=== PATIENT | male | born 1975 | race Caucasian/White ===

== ENCOUNTER 2020-11-23 05:37 | Day surgery (SDC) | payer BC ==
[~2020-11-23] VITALS: Ht 175.3 cm; Wt 84.5 kg
--- NOTE | ~2020-11-23 | OR ---
[facility] [address] [place], [place] [address] Draft DATE OF OPERATION: SURGEON: Xavi Vasquez MD PREOPERATIVE DIAGNOSIS: Left pharyngeal tumor. POSTOPERATIVE DIAGNOSIS: Left pharyngeal tumor. PROCEDURE: Direct laryngoscopy, biopsy of left pharyngeal tumor. ANESTHESIA: General orotracheal. IMAGING SCIENCE PROFESSOR: Pierce. PREOPERATIVE HISTORY: Mr. Marques is a 45-year-old male with a left pharyngeal tumor, very suspicious for neoplasia. CAT scan had shown a mass in the left tonsil area and cervical lymph nodes. He is taken to the operating for the above-mentioned procedures. OPERATIVE PROCEDURE AND FINDINGS: After informed consent, the patient was taken to the operating room, placed in the supine position where general orotracheal anesthesia was induced. The patient and procedure were verified. The patient was repositioned. Digital palpation of the tumor showed a very large indurated mass in the left pharynx, this extended up to the level of the soft palate and down inferiorly beyond the surgeon's finger at least 3 or 4 cm in greatest dimension superior-inferior, very hard indurated mass. The anterior commissure laryngoscope was then used to visualize the hypopharynx and larynx. The mass was visualized on the way down and extended about to the midline pushing the uvula to the right side slightly. The hypopharynx and larynx were all within normal limits. The inferior extent of the mass was at about the level of the arytenoid on the left side. No laryngeal or hypopharyngeal abnormalities. The scope was removed. The McIvor mouth gag was then placed into suspension, the mass appeared to be mostly submucosal, there was some granular tissue superiorly near the retromolar trigone, which was biopsied with the Norm. Several other biopsies more inferiorly submucosal into the depth of the mass, all specimen sent to pathology in formalin. PATIENT NAME: ISABEL MARQUES OPERATIVE REPORT DATE OF : 71 REPORT #: [id number] PHYSICIAN: XAVI VASQUEZ MD PCP: EVA SIMMS MD REPORT IS CONFIDENTIAL AND NOT TO BE RELEASED WITHOUT AUTHORIZATION [facility] [address] [place], [place] [address] Draft Bleeding was prominent, but stopped after a 5-minute observation. Pharynx was suctioned clear of blood secretions and mouth gag was removed. The patient was awakened, extubated, transported to the recovery room in good condition. No complications. BLOOD LOSS: About 50 mL. SPECIMEN: Left pharyngeal mass to pathology. Xavi Vasquez MD /MODL /[id number] Copies: ~ PATIENT NAME: ISABEL MARQUES OPERATIVE REPORT DATE OF : 71 REPORT #: [id number] PHYSICIAN: XAVI VASQUEZ MD PCP: EVA SIMMS MD REPORT IS CONFIDENTIAL AND NOT TO BE RELEASED WITHOUT AUTHORIZATION
[~2020-11-23 05:37] MED LIST: TRAZODONE HCL100 MG PO; ULTRAM50 MG PO
--- NOTE | 2020-11-23 05:54 | NUR ---
[facility] RAPID COVID TEST DONE PER ORDER. COVID TEST COLLECTED FROM BOTH NARES W/O ISSUE. PT TOLERATED WELL.
[2020-11-23] MEDS ORDERED: NAPROXEN250 MG PO (06:16)
[2020-11-23] MEDS ORDERED: IBUPROFEN200 M1 PO (06:16)
[2020-11-23] MEDS ORDERED: ACETAMINOPHEN500 M1 PO (06:17)
--- NOTE | 2020-11-23 09:46 | NUR ---
11/23/20 0946 Nayeli,Tasha 0966 PT ARRIVED TO PACU WITH ORAL AIRWAY IN PLACE, RESP EVEN AND UNLABORED ON 10L VIA MASK. VSS.
--- NOTE | 2020-11-23 10:28 | NUR ---
PATIENT BACK IN DAY SURGERY ROOM FROM PACU. PATIENT DROWSY. C/O PAIN 03/14. DENIES NEED FOR PAIN MEDICATION AT THIS TIME. PATIENT GIVEN ICE WATER AND JELLO. IV SITE WNL. SCDs ON. AT BEDSIDE. CALL LIGHT WITHIN REACH.
--- NOTE | 2020-11-23 11:00 | NUR ---
KELSEY SHARIF INTO SEE PT. PT STATES 9/10 PAIN IN LEFT EAR/THROAT. NEW ORDERS GIVEN VERBALLY TO THIS RN AND INPUT INTO [employer]. 1110: PT UP TO BR WITH RN ASSIST. STEADY GAIT, DENIES NAUSEA OR DIZZINESS. PT ABLE TO VOID QS WITH NO PROBLEMS. PT BACK TO DS RM 5 TO GET DRESSED.
--- NOTE | 2020-11-23 11:20 | NUR ---
1120: DC INSRUCTIONS PRESENTED TO PT AND SIGNIFICANT OTHER. PT HAS NO FURTHER QUESTIONS. PT DC FROM DS RM 5 VIA WC TO FAMILY VEHICLE WAITING AT MAIN ENTRANCE OF HOSPITAL TO HOME.
--- NOTE | 2020-11-23 13:48 | NUR ---
PT ALERT, ORIENTED AND SUPPORTED BY HIS AISSATOU. PT SEEMS INFORMED, ALL QUESTIONS ASKED ASWERED. PT REQUESTED PRAYER, WILL FOLLOW NEEDED
--- NOTE | 2020-11-25 16:15 | PATH ---
[facility] [address] [place], [place] [address] Signed SPECIMEN(S): A LEFT PHARYNGEAL TUMOR SPECIMEN SOURCE: A. LEFT PHARYNGEAL TUMOR CLINICAL HISTORY: Direct laryngoscopy biopsy of pharyngeal lesion. Pre: Pharyngeal lesion. Post: Same. FINAL PATHOLOGIC DIAGNOSIS: Left pharyngeal tumor, excision: - Invasive poorly differentiated squamous cell carcinoma. - A p16 immunostain is uniformly positive in tumor cells. COMMENT: The diagnosis is given to Dr. Jameson by Dr. Simpson on 11/25/2020 at 18:44. As part of [facility]' Quality Improvement Program, this case was reviewed by another member of our pathology staff. JVR:YANCI:cml:C1NR MICROSCOPIC EXAMINATION: Histologic sections of all submitted blocks are examined by light microscopy. These findings, together with the gross examination, support the pathologic diagnosis. Immunostains are performed with appropriate controls on block A1 and show the following: Cytokeratin AE1/AE3: Positive in tumor cells. p63: Positive in tumor nuclei. p16: Uniform expression within tumor cells. JVR:cml GROSS DESCRIPTION: The specimen, labeled "MS, left pharyngeal tumor," is received in formalin and consists of several irregular shaped, pink-red, focally congested soft tissue fragments that aggregate measure 1.4 x 1.5 x 0.4 cm. Specimen is entirely submitted in cassette (A1). JS (under the direct supervision of a pathologist) The Gross Description was prepared using a voice recognition system. The report was reviewed for accuracy; however, sound-alike word errors, addition and/or deletions may occur. If there is any PATIENT NAME: ISABEL LOVE PATHOLOGY DATE OF : 71 REPORT #: [id number] PHYSICIAN: XI LINDER PCP: EVA SIMMS MD REPORT IS CONFIDENTIAL AND NOT TO BE RELEASED WITHOUT AUTHORIZATION [facility] [address] [place], [place] [address] Signed question about this report, please contact Client Services. ADDITIONAL NOTES: Immunohistochemical and/or in situ hybridization studies were performed on this case with the appropriate positive controls that react as expected. This test was developed and its performance characteristics determined by [facility]. It has not been cleared or approved by the U.S. Food and Drug Administration. The FDA has determined that such clearance or approval is not necessary. This test is used for clinical purposes. It should not be regarded as investigational or for research. [facility] is certified under the Clinical Laboratory Improvement Amendments of 1988 (CLIA) as qualified to perform high complexity clinical laboratory testing. PERFORMING LABORATORY: The technical component was performed by [facility], [address] [place] [address] (Roller Picker: Rosa Curran MD; CLIA# [id number]). Professional interpretation was performed by [facility], [facility], [address] [place] [address]. Diagnostician: Efra Simpson MD Pathologist Electronically Signed 11/25/2020 Copies: ~ PATIENT NAME: ISABEL LOVE PATHOLOGY DATE OF : 71 REPORT #: [id number] PHYSICIAN: XI LINDER PCP: EVA SIMMS MD REPORT IS CONFIDENTIAL AND NOT TO BE RELEASED WITHOUT AUTHORIZATION
== END 2020-11-23 11:20 | disposition home or self-care (01) ==
LOC: DS 05:37 → OPS 05:37 → DS 06:45 → OPS 09:00
PROVIDERS: ATTEND Otolaryngology
PROC: 0CBM8ZX Excision of Pharynx, Via Natural or Artificial Opening Endoscopic, Diagnostic (ICD-10-PCS; principal; 2020-11-23 09:00)
DX: C11.1 Malignant neoplasm of posterior wall of nasopharynx (principal); I10 Essential (primary) hypertension; Z87.891 Personal history of nicotine dependence; Z20.822 Contact with and (suspected) exposure to COVID-19
CPT/HCPCS: 00320; C9803; J1100; J1885; J2001; J2250; J2405; J2704; J3010; J7121; U0003

== ENCOUNTER 2020-12-14 05:41 | Day surgery (SDC) | payer BC ==
[~2020-12-14] VITALS: Ht 175.3 cm; Wt 84.5 kg
[~2020-12-14 05:41] MED LIST changes: +ACETAMINOPHEN500 M1 PO; +IBUPROFEN200 M1 PO; +NAPROXEN250 MG PO
--- NOTE | 2020-12-14 06:19 | NUR ---
[facility] RAPID COVID TEST DONE PER ORDER. COVID TEST COLLECTED FROM BOTH NARES W/O ISSUE. PT TOLERATED WELL.
[2020-12-14] MEDS ORDERED: PRILOSEC OTC20 MG PO (10:10)
--- NOTE | 2020-12-14 10:59 | NUR ---
12/14/20 1059 Gwen Walsh 7066 PT ARRIVED IN PACU WIDE AWAKE WITH NO C/O'S. PEG TUBE INTACT TO ABD WITH CANDACE AND RADHA OVERSITE. 1000 DR AT BEDSIDE TALKING WITH PT. 1013 C/O ABD PAIN 8. FENTANYL 50MCG GIVEN IVP. TALKING TO STAFF. 1021 NO CHANGE IN PAIN LEVEL. FENTANYL 50MCG GIVE IVP. EDUCATION GIVEN ON HOW TO FLUSH PEG TUBE AND 60CC CATHETER TIP SYRINGE GIVEN TO PT. 1030 NO C/O'S. GETTING DRESSED. 1042 DC INSTRUCTIONS GIVEN TO PT/ AT CAR. ALL QUESTIONS ANSWERED. IRRIGATION KIT WITH PISTON SYRINGE GIVEN TO PT. LEFT VIA W/C.
--- NOTE | 2020-12-14 12:37 | NUR ---
PT ALERT, ORIENTED AND SUPPORTED BY HIS AISSATOU. PT IS ANXIOUS FOR TODAY AND IS LOOKING AT WHAT HE HAS COMING UP FOR TREATMENT. ENCOURAGED PT TO NOT LOOK DOWN THE ROAD-DEAL WITH TODAY. ONE STEP IN ROAD TO RECOVERY. HAD PRAYER WITH PT AND AISSATOU. PT THANKED ME, WILL FOLLOW NEEDED
--- NOTE | 2020-12-16 14:48 | PATH ---
[facility] [address] [place], [place] [address] Signed SPECIMEN(S): A ANTRUM/PYLORUS SPECIMEN SOURCE: A. ANTRUM/PYLORUS CLINICAL HISTORY: Left tonsillar carcinoma. Dx: Gastritis, tonsillary Ca. MICROSCOPIC DESCRIPTION: Histologic sections of all submitted blocks are examined by light microscopy. These findings, together with the gross examination, support the pathologic diagnosis. FINAL PATHOLOGIC DIAGNOSIS: Stomach, antrum/pylorus, biopsy: - Antral and oxyntic mucosa with no histopathologic abnormality. - Negative for Helicobacter organisms on HE stain. - Negative for dysplasia or malignancy. NAL:cml:C2NR GROSS DESCRIPTION: The specimen, labeled "MS, one," and designated on the requisition "antrum biopsy," is received in formalin and consists of one jin soft tissue fragment(s) that measure 0.6 cm in greatest dimension. The specimen is entirely submitted in cassette (A1). AI(under the direct supervision of a pathologist) The Gross Description was prepared using a voice recognition system. The report was reviewed for accuracy; however, sound-alike word errors, addition and/or deletions may occur. If there is any question about this report, please contact Client Services. PERFORMING LABORATORY: The technical component was performed by [facility], [address] [place] [address] (Structural Steel Painter: Rosa Curran MD; CLIA# [id number]). [facility], [address] [address] (CLIA# [id number]). Diagnostician: Emilia Otero MD Pathologist Electronically Signed 12/16/2020 PATIENT NAME: ISABEL LOVE PATHOLOGY DATE OF : 71 REPORT #: [id number] PHYSICIAN: INCYTE PATHOLOGY PCP: EVA SIMMS MD REPORT IS CONFIDENTIAL AND NOT TO BE RELEASED WITHOUT AUTHORIZATION [address] [address] Signed Copies: ~ PATIENT NAME: ISABEL LOVE PATHOLOGY DATE OF : 71 REPORT #: [id number] PHYSICIAN: INCYTE PATHOLOGY PCP: EVA SIMMS MD REPORT IS CONFIDENTIAL AND NOT TO BE RELEASED WITHOUT AUTHORIZATION
--- NOTE | 2020-12-16 17:33 | OR ---
[facility] [address] [place], [place] [address] Signed DATE OF OPERATION: 12/14/2020 SURGEON: Amy Henry MD PREOPERATIVE DIAGNOSIS: Left tonsillar carcinoma. POSTOPERATIVE DIAGNOSES: 1. Left tonsillar carcinoma. 2. Antral gastritis. PROCEDURE: 1. Esophagogastroduodenoscopy with biopsy of antrum. 2. Placement of PEG tube (percutaneous endoscopic gastrostomy) Bard type kit. ANESTHESIA: Monitored with anesthesia care, Jesus Otto CRNA and local 1% lidocaine. 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 He has been discovered to have a left tonsillar carcinoma, for which concurrent chemoradiation therapy is anticipated. His radiation therapist, Dr. Coreas has recommended he have a placement of PEG tube anticipating G-tube feedings once his therapy is initiated as he likely will have significant dysphagia, pain, and so forth. A Port-A-Cath has not been required according to his oncologist, Dr. Castro. He is admitted at this time to undergo upper endoscopy and endoscopic percutaneous endoscopic gastrostomy tube, possible open procedure depending on findings. The risks of bleeding, infection, dislodgement of the tube, and other unforeseen complications was reviewed with him in detail. He understands and wished to proceed. FINDINGS: Gastric anatomy was normal overall. He did have antral gastritis, for which biopsies were taken for both PAUL and pathologic testing. The duodenum was normal. There was no sign of gastric outlet obstruction. He had no significant hiatal hernia. The esophagus was normal. Rugal folds were normal. The PEG tube was placed at the junction between the antrum and the body of the stomach. Good transillumination was noted through the abdominal wall and impression of the abdominal wall to allow for placement of a percutaneous gastrostomy tube. Electronically Signed By: AMY HENRY MD 12/16/20 2494 PATIENT NAME: ISABEL LOVE OPERATIVE REPORT DATE OF : 71 REPORT #: [id number] PHYSICIAN: AMY HENRY MD PCP: EVA SIMMS MD REPORT IS CONFIDENTIAL AND NOT TO BE RELEASED WITHOUT AUTHORIZATION [facility] [address] [place], [place] [address] Signed DESCRIPTION OF PROCEDURE: The patient was brought to the operating room, placed in the supine position. Preoperative antibiotic Ancef was given. Sequential compression device stockings were used. In the supine position, he was given intravenous sedation with full cardiopulmonary monitoring. A bite block was placed. An Olympus video upper endoscope was passed in the hypopharynx. The vocal cords appeared normal. The scope was advanced to the esophagus without problem, passed into the stomach. Rugal folds appeared normal. The antrum showed chronic inflammatory changes and some acute inflammatory changes as well. There was no specific ulceration. The pylorus was normal. Scope was passed through into the duodenum. The duodenum was normal. The scope was withdrawn and retroflexed view undertaken showing no large hiatal hernia or any contraindication to the PEG tube placement. Reorientation of the scope was undertaken allowing for biopsy of the antrum for both PAUL and pathologic testing. Transillumination was undertaken showing a bright spot beneath the left costal margin toward the midline anticipated as appropriate site for PEG tube placement. on the abdominal wall translated into the stomach itself with unlikely chance of an intervening organ between the abdominal wall and the stomach. The site was prepared with Betadine solution. A 1% lidocaine injected. Transverse incision was made with an #11 blade. Using the HaveMyShift kit, obturator needle passage to the abdominal wall was undertaken. It was initially hard for the needle to actually penetrate the mucosa, but with additional air insufflation it did occur and the flexible wire was passed down the needle after removing the obturator of the needle. The wire was then grasped with a snare and withdrawn from the mouth. The PEG tube catheter was then passed over the wire through the mouth and carefully drawn through the esophagus in the abdominal wall as per usual after lubricating the device fully. Once emerging from the incision, it was withdrawn carefully more and snugged up to about 6 cm marlena on the tube. The upper endoscope was reintroduced and verified to be in good position. The tube was snugged up just a bit more. The appropriate flange was applied. The connection to the tube was applied as well. Irrigation with catheter-tip syringe showed good function of the tube. There appeared to be no complication. No untoward bleeding or other issues. Insufflation of the stomach showed it to hold air well implying good apposition of the stomach to the abdominal wall. The air was withdrawn and the scope removed and the patient was taken to the recovery room in good condition. BLOOD LOSS: Minimal. COMPLICATIONS: None. Electronically Signed By: AMY HENRY MD 12/16/20 1733 PATIENT NAME: ISABEL LOVE OPERATIVE REPORT DATE OF : 71 REPORT #: [id number] PHYSICIAN: AMY HENRY MD PCP: EVA SIMMS MD REPORT IS CONFIDENTIAL AND NOT TO BE RELEASED WITHOUT AUTHORIZATION [address] [address] Signed MD ROSEY Aquino/MODL /[id number] cc: MD Dale Forrest MD, PH.D. Copies: EVA SIMMS DMD, JUNO ~ Electronically Signed By: AMY HENRY MD 12/16/20 1733 PATIENT NAME: ISABEL LOVE OPERATIVE REPORT DATE OF : 71 REPORT #: [id number] PHYSICIAN: AMY HENRY MD PCP: EVA SIMMS MD REPORT IS CONFIDENTIAL AND NOT TO BE RELEASED WITHOUT AUTHORIZATION
== END 2020-12-14 10:42 | disposition home or self-care (01) ==
LOC: OPS 05:41 → DS 05:41 → OPS 10:42 → DS 11:30
PROVIDERS: ATTEND Surgery
PROC: 0DH63UZ Insertion of Feeding Device into Stomach, Percutaneous Approach (ICD-10-PCS; 2020-12-14)
PROC: 0DB98ZZ Excision of Duodenum, Via Natural or Artificial Opening Endoscopic (ICD-10-PCS; principal; 2020-12-14 06:45)
DX: C14.0 Malignant neoplasm of pharynx, unspecified (principal); C09.9 Malignant neoplasm of tonsil, unspecified; K29.50 Unspecified chronic gastritis without bleeding; Z87.891 Personal history of nicotine dependence
CPT/HCPCS: 00700; C9803; J0690; J1100; J1644; J2250; J2405; J2704; J3010; J7121; U0003

== ENCOUNTER 2022-05-23 12:37 | Emergency (ER) | payer BC ==
[~2022-05-23] VITALS: Ht 175.3 cm; Wt 70.6 kg
[~2022-05-23 12:37] MED LIST changes: +HYDROCODON-ACE1 EA10 PO; +LIDOCAINE HCL100 ML MT; +ONDANSETRON ODT8 MG PO; +PENTOXIFYLLINE400 MG PO; +PRILOSEC OTC20 MG PO
--- OUTSIDE RECORDS SUMMARY | 2022-05-23 12:38 | XMS ---
PreManage Notification: ISABEL LOVE Security Digital Experience Manager Events No recent Security Events currently on file CRITERIA MET - PDMP CARE PROVIDERS MENDEZ [facility] Current PHONE: [phone] Hernandez has no Care Guidelines for this patient. EJacquie VISIT COUNT (12 MO.) 1 AVELINO Lopez TOTAL 1 NOTE: Visits indicate total known visits. ED/UCC VISIT TRACKING (12 MO.) 05/23/2022 12:[address] [facility] TYPE: Emergency COMPLAINT: - URINE PROBLEM INPATIENT VISIT TRACKING (12 MO.) No inpatient visits to display in this time frame [email or web address]
[2022-05-23] MEDS ORDERED: AZO BLADDER CO300 MG PO (13:32)
[2022-05-23] MEDS ORDERED: MACROBID 100 M100 MG PO (16:21)
== END 2022-05-23 17:55 | disposition home or self-care (01) ==
LOC: ED 12:37
DX: N39.0 Urinary tract infection, site not specified (principal); E87.6 Hypokalemia; K76.0 Fatty (change of) liver, not elsewhere classified; I10 Essential (primary) hypertension; Z87.891 Personal history of nicotine dependence; Z79.899 Other long term (current) drug therapy
CPT/HCPCS: 36415; 74177; 80053; 81001; 83690; 85025; 87070; 87205; J1885; J2405; J7030; Q9967

== ENCOUNTER 2022-10-26 14:09 | Inpatient (IN) | payer BC, OTHER ==
[~2022-10-26] VITALS: Ht 175.3 cm; Wt 62.4 kg
[~2022-10-26 14:09] MED LIST changes: +AZO BLADDER CO300 MG PO; +MACROBID 100 M100 MG PO
--- OUTSIDE RECORDS SUMMARY | 2022-10-26 14:13 | XMS ---
PreManage Notification: ISABEL LOVE Security Machinery Mover Events No recent Security Events currently on file CRITERIA MET - PDMP CARE PROVIDERS MENDEZ [facility] Current PHONE: [phone] Hernandez has no Care Guidelines for this patient. EJacquie VISIT COUNT (12 MO.) 2 AVELINO Lopez TOTAL 2 NOTE: Visits indicate total known visits. ED/UCC VISIT TRACKING (12 MO.) 10/26/2022 14:10 [facility] [place] TYPE: Emergency COMPLAINT: - POST SURGICAL OPEN WOUND 05/23/2022 12:37 [facility] [place] TYPE: Emergency COMPLAINT: - URINE PROBLEM DIAGNOSES: - Hypokalemia - Other halfway (current) drug therapy - Fatty (change of) liver, not elsewhere classified - Urinary tract infection, site not specified - Frequency of micturition - Personal history of nicotine dependence - Essential (primary) hypertension INPATIENT VISIT TRACKING (12 MO.) 10/04/2022 05:21 [facility] TYPE: Ear, Nose, Throat DIAGNOSES: 45106. Radiological procedure and radiotherapy as the cause of abnormal reaction of the patient, or of later complication, without mention of misadventure at the time of the procedure 175[address]. Other secondary osteonecrosis, unspecified bone 15189. Malignant neoplasm of head, face and neck 65509. OSTEONECROSIS OF MANDIBLE (HCC) 50598. Malignant neoplasm of head, face and neck 64713. Other secondary osteonecrosis, unspecified bone 82116. Osteomyelitis, unspecified 20649. Radiological procedure and radiotherapy as the cause of abnormal reaction of the patient, or of later complication, without mention of misadventure at the time of the procedure [email or web address]
[2022-10-26] MEDS ORDERED: MOXIFLOXACIN H400 MG PO (14:39)
[2022-10-26] MEDS ORDERED: CHLORHEXIDINE473 ML MM (14:39)
[2022-10-26] MEDS ORDERED: DULOXETINE HCL60 MG PO (14:40)
[2022-10-26] MEDS ORDERED: LEVOTHYROXINE50 MCG PO (14:40)
--- NOTE | 2022-10-26 19:45 | NUR ---
pt ADMITED TO MEDSURG FLOOR FROM ED, ED RN KOLE AT BEDSIDE AND PROVIDED BEDSDIE REPORT. pt A/OX4, ORIENTED TO ROOM. CALL LIGHT IN REACH. IV FLUIDS INFUSING DIRECTED, IV SITE WNL. pt HAS HOME FEEDING TUBE (DOBHOFF) IN PLACE AND SECURED. MOTHER AND FAMILY BRIEFLY IN pt ROOM. DRESSING TO LEFT SIDE OF NECK NOTED, DRESSING IS WET TO DRY. GENERALIZED EDEMA AND REDDNOESS NOTED TO NECK AREA, pt DENIES DIFFICULTY SWALLOWING-ASKING FOR ICE CHIPS PER HIS HOME ROUTINE-THIS RN TO DISCUSS HOME DIET WITH MD THERE ARE NO CURRENT DIET ORDERS IN PLACE.
--- NOTE | 2022-10-26 20:30 | NUR ---
pt REPORTS THAT BECAUSE OF HIS HOME FEEDING TUBE (DOBHOFF) pt DOESN'T TAKE ORAL INTAKE VIA MOUTH W/ THE EXCEPTION OF ICE CHIPS. pt REPORTS HE IS ON A 1500 CALORIE/DAY PLAN AND GETS HIS MEALS AND MEDS VIS HIS FEEDING TUBE. DR LARA MADE AWARE, THERE IS NO CURRENT DIET ORDERS IN PLACE. TELEPHONE ORDER READ BACK FOR A CHEST X-RAY TO CONFIRM DOBHOFF TIP PLACEMENT AND OKAY TO FOLLOW pt's HOME FEEDING ROUTINE. PER DR LARA, OKAY TO USE FEEDING TUBE ONCE PLACEMENT IS CONFIRMED. TELEPHONE ORDER ALSO READ BACK FOR A DIET CONSULT TO ASSIST pt NUTRITION AND MIMIC BEST HOME ROUTINE VIA FEEDING TUBE. pt UPDATED ALONG WITH PRIMARY RN MARYURI. MOTORCYCLE TESTER ALSO MADE AWARE AND UPDATED.
--- NOTE | 2022-10-26 21:53 | NUR ---
INTO ROUND ON PATIENT. IV PAIN MEDICAITON EFFECTIVE, PATIENT RATES PAIN 0/10 ON PAIN SCALE. PATIENT REQUESTED GAUZE, PLACED ALLEVYN GENTLE BORDER TO REINFORCE DRESSING IN PLACE. NOTED YELLOWISH DRAIANGE. CALL LIGHT WITHIN REACH. NO OTHER NEEDS AT THIS TIME.
--- NOTE | 2022-10-26 22:37 | EKG ---
[facility] [facility] [address] [place] [address] Signed Sinus tachycardia Otherwise normal ECG When compared with ECG of 13-DEC-2020 13:40, Incomplete right bundle branch block is no longer present Confirmed by Kaela Lara MD () on 10/26/2022 10:37:46 PM Electronically Signed By: KAELA LARA MD 10/26/222236 PATIENT NAME: ISABEL LOVE Electrocardiogram DATE OF : 71 PHYSICIAN: KAELA LARA MD REPORT #: [id number] REPORT IS CONFIDENTIAL AND NOT TO BE RELEASED WITHOUT AUTHORIZATION
--- NOTE | 2022-10-27 03:43 | NUR ---
PATIENT CALLED FOR WARM BLANKETS AND PAIN MEDICATION. TURNED UP TEMPERATURE IN ROOM, AND PROVIDED WARM BLANKETS. ADMINISTERED PAIN MEDICATION PER JAN. PATIENT REPORTS PAIN 8/10 ON PAIN SCALE MOSTLY RADIATING IN FACE AREA. NOTED INCREASED SWELLING TO LEFT SIDE OF FACE, EYE APPEARS PUFFY. PATIENT WAS SLEEPING IN POSITION, MAY BE DEPENDANT SWELLING. AIRWAY CLEAR, PATIENT ABLE TO CONVERSE EASILY. OXYGEN SATUATION 100% ON ROOM AIR. PATIENT BREATHING EVEN AND REGULAR. PATIENT DUE TO VOID. PROVIDED WITH URINAL, STATES " I CAN PEE NOW".
--- NOTE | 2022-10-27 07:52 | NUR ---
Patient in bed resting, arousable to verbal stimuli. RADHA Christianson admin dilaudid and changed neck dressing during bedside shift report. Left neck dressing saturated with thick yellow drainage. New packing placed per provider order. Patient tolerated well. IV antibiotics infusing, IV site patent. No current needs, personal supplies and call light within reach.
--- NOTE | 2022-10-27 08:25 | NUR ---
pt refused am care this morning.
--- NOTE | 2022-10-27 09:30 | NUR ---
DILAUDID 0.5MG IV ADMIN FOR REPORTS OF 5/10 LEFT NECK PAIN.
--- NOTE | 2022-10-27 09:39 | NUR ---
PATIENT IN BED THIS AM. VITALS ARE COMPLETED. PATIENT NPO, AND HAS YET TO VOID. THIS LABOR RELATIONS MANAGER WILL RETURN WHEN THE PT DOES. CALL LIGHT WITHIN REACH.
--- NOTE | 2022-10-27 10:00 | NUR ---
Spoke with Jordan. He lives in a house in [place]. He is recently and his mom is staying with him to assist with the dressing changes on his neck and leg. See H&P for surgery note. Pt has a feeding tube in his L nares and he takes 6 cartons of Nutra for food. He would like an implanted feeding tube as the nasal is painful for him. Pt states he has a suction machine and a boot at home for DME. His feedings are syringe bolus. Pt returned home around the of the month and declined HH. He would now like for wound care. I called [facility] and they requested a chart today, as they will be closed over . They will put pt on the schedule for dressing changes on Sunday of next week. Pt is attempting to schedule an appt with his ENT at [facility] for next week.
--- NOTE | 2022-10-27 10:38 | NUR ---
ADMIN 0.5MG IV DILAUDID FOR REPORTS OF 8/10 LEFT NECK PAIN.
[2022-10-27] MEDS ORDERED: METRONIDAZOLE500 MG PO (10:46)
[2022-10-27] MEDS ORDERED: OXYCODONE HCL5 MG PO (10:47)
--- NOTE | 2022-10-27 11:00 | NUR ---
Spoke with pts mom, Manuela. She states she is staying with Jordan and assisting him. She states this is very hard as he is not compliant and blames her for his wound infection. Dr Anderson was also present and answered questions. Per Manuela, ENT is attempting to schedule pt for an appt next .
--- NOTE | 2022-10-27 11:05 | NUR ---
PT LAYING ON R SIDE IN BED. RESPONDED TO MY VOICE, FAMILIAR WITH THIS PT. HE REPLIED HIS PAIN IS 8, JUST MOVED. FEEDING TUBE IN PLACE-PT APPEARS TO WANT TO REST AT MOMENT. GAVE G.POST, HAD PRAYER AND GAVE ENOURAGEMENT.
--- NOTE | 2022-10-27 11:54 | NUR ---
Dilaudid 1mg IV admin for reports of 6/10 left neck pain.
--- NOTE | 2022-10-27 12:00 | NUR ---
Jevity 1.5 480ml feed infusing at this time per order, pt tolerating well. Patient denies abdominal discomfort. Left neck dressing reinforced as it does not stick to his skin well. Patient has no current needs, personal supplies and call light within reach.
--- NOTE | 2022-10-27 12:17 | CONS ---
[facility] [address], [place] [address] Signed DATE OF CONSULTATION: 10/27/2022 CHIEF COMPLAINT: Left neck wound. 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 He initially received radiation therapy. The radiation had affected the mandible and it broke down and he had to have it reconstructed with the left fibula. He just came home from our [facility] on the of this month. He has a nasogastric feeding tube with a bridle in place in his proximal stomach. He had been at home recovering. His tracheostomy has been removed about seven days ago. The wound on his neck broke down and he decided to come to the emergency room for evaluation. Incidentally, the chest x-ray showed increased markings in his right upper lobe concerning for pneumonia. Therefore, he was given vancomycin and Zosyn. The ENT department was contacted at [facility]. They felt his wound could be handled with wet to moist gauze packing. I was asked to see him as a general surgeon on-call. Overall, he has done well last night and this morning. PAST MEDICAL HISTORY: Hypertension and HPV related head and throat cancer. PAST SURGICAL HISTORY: Includes tonsillectomy and reconstruction of his jaw about three weeks ago at [facility]. He has had a gastrostomy tube in the past. He had a recent tracheostomy tube that has been removed and he had the mandible reconstructed. SOCIAL HISTORY: He drinks occasionally. He does use some marijuana. He is to [place] at [phone][address] vEa Simms is his primary care provider. He prefers the [facility] pharmacy. 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 He is a full code. FAMILY HISTORY: None. REVIEW OF SYSTEMS: He had 10 systems reviewed and there was nothing new to add. ALLERGIES: None. MEDICATIONS: Electronically Signed By: ARLINE COLEY MD 10/27/22 1217 PATIENT NAME: JORDAN LOVE CONSULTATION DATE OF : 71 REPORT #: [id number] PHYSICIAN: ARLINE COLEY MD PCP: EVA SIMMS MD REPORT IS CONFIDENTIAL AND NOT TO BE RELEASED WITHOUT AUTHORIZATION [facility] [address] [place] [id number] Signed 1. Ben Bolt. 2. Zofran. 3. Moxifloxacin. 4. Chlorhexidine. 5. Duloxetine. 6. Levothyroxine. PHYSICAL EXAMINATION: VITAL SIGNS: His blood pressure is 127/76, heart rate 93, respiratory rate 16, temperature is 97.6. He is 100% on 2 L. He is 5 feet 9 inches at 62 kg with a body mass index of 20. GENERAL: Jordan is a 47-year-old gentleman, lying in the left lateral decubitus position in his hospital bed. He looks older than his stated age. He is able to talk some since the tracheostomy site has been covered with gauze. We can see extensive radiation changes to his left neck area. The wounds open completely. There is one tiny stitch left and it was divided. He has fibrinous exudate with some underlying granulation tissue. There is no odor. No obvious purulent drainage that I can see this morning. The wound was repacked with saline soaked gauze. He has Xeroform gauze over his left lower extremity incision with gauze netting over that. It appears to be healing well. He has a little bit eschar around the ankle, but no local signs or symptoms of infection. LABORATORY DATA: His white blood cell count is 16, it was 19. His hemoglobin is 9.9. Electrolytes are unremarkable. Albumin is 2.6. Urine showed some bacteria, so urine culture is pending. His blood cultures are pending. His INR is 1. His lactic acid is 1.6. COVID is negative. Influenza A and B are negative. RSV is negative. RADIOGRAPHIC STUDIES: Chest x-ray is reviewed. He does have increased markings in the right upper lobe and a nasogastric feeding tube in his proximal stomach. ASSESSMENT AND PLAN: Jordan is a 47-year-old gentleman, who has gone through very difficult radiation surgery for his left neck and mandible. That wound is broke down and it is open and his surgeons at our [facility] recommended saline, wet to moist gauze dressing twice a day. He is not able to eat or chew food and swallow at this time, so he is using his nasogastric feeding tube with Jevity. Our dietary department has just come down the hallway and will be reassessing that. The left leg wound is healing quite nicely. In the meantime, he is going to stay on the vancomycin and Zosyn for his pneumonia. Otherwise, no new input. I discussed with the patient, Dr. Anderson and nurse. Electronically Signed By: ARLINE OCLEY MD 10/27/22 1217 PATIENT NAME: JORDAN LOVE CONSULTATION DATE OF : 71 REPORT #: [id number] PHYSICIAN: ARLINE COLEY MD PCP: EVA SIMMS MD REPORT IS CONFIDENTIAL AND NOT TO BE RELEASED WITHOUT AUTHORIZATION [facility] [address] [place], [place] [address] Signed MD YANCY Waters/ELIZABETH /[id number] Copies: ~ Electronically Signed By: ARLINE CLOEY MD 10/27/22 1217 PATIENT NAME: JORDAN LOVE CONSULTATION DATE OF : 71 REPORT #: [id number] PHYSICIAN: ARLINE COLEY MD PCP: EVA SIMMS MD REPORT IS CONFIDENTIAL AND NOT TO BE RELEASED WITHOUT AUTHORIZATION
--- NOTE | 2022-10-27 13:04 | NUR ---
VERBAL ORDER OBTAINED FROM DR. LARA TO CHANGE CURRENT DILAUDID ORDER TO EVERY TWO HOURS NEEDED AND TO ADD TORADOL 15MG IV EVERY 8HRS NEEDED.
--- NOTE | 2022-10-27 14:03 | NUR ---
Admin toradol 15mg IV and dilaudid 1MG IV for reports of 6/10 left neck pain.
[2022-10-27] MEDS ORDERED: CYCLOBENZAPRINE5 MG PO (15:21)
[2022-10-27] MEDS ORDERED: HYDROCODON-ACE1 EA11 PO (15:21)
[2022-10-27] MEDS ORDERED: ESCITALOPRAM OX20 MG PO (15:22)
--- NOTE | 2022-10-27 15:24 | NUR ---
MED REC COMPLETE
--- NOTE | 2022-10-27 16:22 | NUR ---
Admin dilaudid 1MG IV for 6/10 neck pain. Left neck dressing and old trach site changed at this time. Trach site cleared of yellow sputum, wound ware cleaner then used on surrounding tissue, dried then covered with soft border dressing (allevyn). Left neck dressing changes as well, old packing removed from incision site, cleansed with wound ware cleaner then repacked with wet to dry then covered with soft border allevyn dressing. Patient tolerated well.
--- NOTE | 2022-10-27 18:15 | NUR ---
PATIENT IN BED. EYES CLOSED. VITALS AND I/O'S COMPLETED. PT HAS NO OTHER NEEDS AT THIS TIME. CALL LIGHT WITHIN REACH.
--- NOTE | 2022-10-27 19:05 | NUR ---
REPORT RECEIVED FROM JACOB GARCIA, ALL QUESTIONS ANSWERED. PT LYING AWAKE IN BED WATCHING TV, REQUESTS PAIN AND NAUSEA MEDS. DENIES OTHER NEEDS, CALL LIGHT IN REACH.
--- NOTE | 2022-10-27 19:15 | NUR ---
Admin dilaudid 1mg IV and Zofran 4mg IV for reports of nausea and 5/10 left neck incision pain.
--- NOTE | 2022-10-27 20:00 | NUR ---
INTO ROOM, FULL BODY ASSESSMENT DONE. LUNG SOUNDS COURSE IN ALL LOBES FERNANDEZ. NOTED DRESSING NOT INTACT TO NECK. PROVIDED DRESSING CHANGE. NOTED REDNESS OF PERIWOUND AND TRACH STOMA. CLEANSED WITH NORMAL WOUND CLEANSER, THEN APPLIED SKIN PREP, AND HYDROCOLLOID DRESSING TO PROTECT SKIN. CLENASED WOUND BED APPLIED NEW MOISTENED GAUZE TO WOUND BED, APPLIED MUPIRICON CREAM, AND THEN APPLIED ALGINATE OVER TOP OF GAUZE TO HELP WITH ABSORB EXTRA DRAINAGE. PATIENT VERBALIZED NOT LIKING THE TAP, PLACED A LARGE OPSITE CUT DOWN TO FIT WOUND AREA TO SECURE GAUZE. PLACED GAUZE AND TAPE OVER TRACH STOMA. ADMINISTERED PAIN MEDICATION BEFORE DRESSING CHANGE, PATIENT TOLERATED WELL AND DID NOT NEED ANY TIME OUTS. SWELLING TO LEFT SIDE OF FACE APPEARS IMPROVED. PATIENT STATES " I AM EXCITED TO TAKE A SHOWER IN THE MORNING" INSTRUCTED THE PATIENT TO CALL BEFORE SHOWERING TO COVER IV SITES AND PER PATIENT REQUEST TRACH SITE.
--- NOTE | 2022-10-27 21:40 | NUR ---
ASSESSMENT COMPLETE. PT AWAKE IN BED WATCHING TV. PT RECENTLY GIVEN DILUADID FOR 9/10 PAIN, STATES PAIN HAS IMPROVED. ALLEVYN TO NECK DRESSING REPLACED. SWELLING TO LEFT FACE 2+. PT DENIES FURTHER NEEDS AT THIS TIME. CALL LIGHT IN REACH.
--- NOTE | 2022-10-27 22:24 | NUR ---
PT C/O 03/14 NECK AND FACE PAIN, REQUESTED AND GIVEN PRN TORADOL. DENIES FURTHER NEEDS AT THIS TIME. CALL LIGHT IN REACH.
--- NOTE | 2022-10-28 00:36 | NUR ---
INTO ROOM TO ADMINISTER VANCO IV, PATIENT RESTING WITH EYES CLOSED AWAKES TO NURSE AT BEDSIDE. PATIENT RATES PAIN 6/10 ON PAIN SCALE, REQUESTED DILAUDID IV. ADMINISTERED DILAUDID IV PER JAN. CHANGED BAG OF NS. PATIENT DRESSING APPEARED SATURATED, THICK COPIOUS AMOUNTS OF GREEN DRAINAGE. CHANGED DRESSING PER ORDER. CLEANSED SKIN AROUND TRACH SITE. APPLIED ALLEVYN GENTLE BORDER OVER TRACH SITE TO PROTECT FROM HEAVY DRAINAGE FROM SURGICAL SITE OF THE NECK. NO OTHER NEEDS AT THIS TIME. CALL LIGHT WITHIN REACH.
--- NOTE | 2022-10-28 03:16 | NUR ---
WHILE ROUNDING ON PATIENT, NOTED PATIENT SLEEPING IN POSITION ON RIGHT SIDE. DRESSING APPEARS TO BE INTACT. PATIENT APPEARS CALM, RESTING SOUNDLY. APPEARS TO BE NO NEEDS AT THIS TIME.
--- NOTE | 2022-10-28 03:56 | NUR ---
INTO ROOM, PATIENT CALLED REQUESTING PAIN MEDICATION. UPON ENTERING ROOM PATIENT IN SUPINE POSITION. STATED "I WAS SLEEPING AND THE PAIN WOKE ME UP" RATES PAIN 9/10 ON PAIN SCALE. ADMINISTERED 1MG IV DILAUDID PER JAN. DRESSING TO NECK WOUND INTACT. LUNG SOUNDS COURSE IN UPPER BASES, DIMINISHED IN LOWER BASES.
--- NOTE | 2022-10-28 06:30 | NUR ---
ADMINISTERED IV ANTIBIOTICS PER MAR, PATIENT AWAKE, STATES "MY THROAT IS HURTING AND FEELING TIGHT" NOTED INCREASED REDNESS, SWELLING AND INDURATION TO LEFT SIDE OF FACE AND NECK. LUNG SOUNDS COURSE IN UPPER LOBES AND DIMINISHED IN BASES. REQUESTED RT TO ASSESS PATIENT TRACH STOMA, CONCERNS OF INCREASED REDNESS. SUCTION AT THE BEDSIDE SET UP FOR PATIENT, AND RT ASSISTED WITH SUCTIONING SECRETIONS FROM TRACH STOMA SITE. SECRETIONS APPEARED LIGHT YELLOW AND THICK. PATIENT DID NOT APPEAR TO TOLERATE THE SUCTIONING WELL, AND NEEDED TIME TO RECOVER. CHANGED DRESSING PER ORDER, APPLIED MUPIRICON CREAM TO REDDENED AREAS PERIWOUND. PACKED WOUND BED LIGHTLY WITH 1 PIECE OF GAUZE. NOTED WOUND BASE HAS STABLE YELLO ESCHAR TO WOUND MARGINS AND WOUND BASE, APPEARS TO BE 90% NON-VIABLE TISSUE AND 10% GRANULATION TISSUE. THE WOUND MARGINS APPEAR TO BE ROLLING AND ERYTHEMA PRESENT. ADMINISTERED CRUSHED MEDICATION THROUGH FEEDING TUBE, FLUSHES WELL AND PATENT. NO RESIDUAL. PROVIDED PATIENT WITH TWO BOTTLES OF JEVITY. PATIENT STATED " I WOULD LIKE TO HAVE THEM AVAILABLE TO DO WHEN I AM READY".
--- NOTE | 2022-10-28 07:42 | NUR ---
REPORT RECEIVED FROM NIGHT RN AND PT CARE RESUMED. LAB CALLED THIS NURSE AND WILL REDRAW CBC DUE TO DISCREPENCY. WILL CONTINUE TO MONITOR
--- NOTE | 2022-10-28 08:00 | NUR ---
PT. ASSESSMENT COMPLETED. 02 SAT IS 99%. PT. DENIES SOB AND TRACH/ SUCTION AT BEDSIDE. PT. C/O 07/15 PAIN. ADMIN PRN MED. LEFT NECK WOUND CLEANSED AND REDRESSED WITH GAUZE AND ABD AFTER ASSESSMENT BY WOUND RN KAREEM. STOMA REDRESSED WITH GAUZE AND TAPE. ASSESSMENT COMPLETED AND MEDS ADMIN. LEFT RESTING WITH CALL LIGHT IN REACH.
--- NOTE | 2022-10-28 08:08 | NUR ---
PATIENT SITTING UP THIS MORNING IN BED. AM CARE COMPLETED, PT HAS NO OTHER REQUESTS AT THIS TIME. CALL LIGHT WITHIN REACH.
--- NOTE | 2022-10-28 10:19 | NUR ---
PATIENT IN BED. VITALS AND I/O'S COMPLETED. PATIENT DIAPHRETIC, WARM BLANKETS GIVEN. NURSE TANYA IN ROOM FOR THIS. CALL LIGHT WITHIN REACH.
--- NOTE | 2022-10-28 11:00 | NUR ---
MD IN THE ROOM. DISCUSSED OTHER PAIN MANAGEMENT OPTIONS. DRESSING REMOVED FROM LLE BY . WILL CONTINUE TO MONITOR.
--- NOTE | 2022-10-28 13:53 | NUR ---
PATIENT IN BED. VITALS AND I/O'S COMPLETED. ICE CHIPS GIVEN. PT HAS NO OTHER NEEDS AT THIS TIME. CALL LIGHT WITHIN REACH.
--- NOTE | 2022-10-28 13:55 | NUR ---
PT. C/O 05/14 LEFT FACIAL PAIN. ADMIN PRN MEDS. ASSESSMENT COMPLETED. DRESSING RE-TAPED. DENIES FURTHER NEEDS. LEFT RESTING WITH CALL LIGHT IN REACH.
--- NOTE | 2022-10-28 16:30 | NUR ---
PT. C/O 06/14 FACIAL PAIN. ADMIN PRN MEDS. DRESSING OFF L. NECK WOUND. RE-DRESSED. TRACH DRESSING SATURATED IN YELLOW THICK SECRETIONS. REDRESSED WITH GAUZE AND TELEMETRY PAD, PER PT. REQUEST. LEFT WITH CALL LIGHT INREACH.
--- NOTE | 2022-10-29 01:00 | NUR ---
INTO ROOM TO ADMINISTER IV VANCO PER JAN, PATIENT AWAKE SITTING UP IN BED. STATES " MY THROAT IS BOTHERING ME, I AM HURTING CAN I PLEASE HAVE SOME PAIN MEDICATION". ADMINISTERED IV DILAUDID AND PAULY TAB ELIXIR PER JAN. NO RESIDUAL WITH FEEDING TUBE, HOWEVER PATIENT REPORTED SOME NAUSEA AND URPING UP JEVITY. ADMINISTERED 4MG IV ZOFRAN. DISCUSSED WITH HOSPITALIST IDEA OF USING A CLORASEPTIC FOR THE THROAT PAIN. HOSPITALIST VERBALIZED NEW ORDER FOR IV BENEDRYL. UPDATED PATIENT ON POC, APPEARS AGREEABLE.
--- NOTE | 2022-10-29 03:29 | NUR ---
PATIENT RESTING WITH EYES CLOSED, APPEARS COMFORTABLE. BREATHING APPEARS REGULAR AND EVEN, DRESSING TO TRACH STOMA AND WOUND INTACT. APPEARS TO HAVE NO NEEDS AT THIS TIME. CALL LIGHT WITHIN REACH.
--- NOTE | 2022-10-29 06:15 | NUR ---
PATIENT REQUESTING PAIN MEDICATION, STATES " I WAS SLEEPING WELL UNTIL LAB CAME INTO DRAW BLOOD" RATES PAIN 8/10 ON PAIN SCALE. ADMINISTERED IV DILAUDID PER MAR. WHEN AVAILABLE WILL ADMINISTER LORATAB ELIXIR. PATIENT VERBALIZED OKAY WITH POC. PROVIDED SUPPLY TO TAKE SHOWER. ADMINISTERED MEDICATION THROUGH FEEDING TUBE, PATENT. DRESSING TO NECK CONTINUES TO BE C/D/I. PROVIDED ICE CHIPS. SWELLING TO LEFT SIDE OF FACE APPEARS DECREASED, PATIENT ABLE TO OPEN MOUTH MORE, PERIWOUND FEELS INDURATED AND ERYTHEMIC. PATIENT VERBALIZES OVERALL FEELING ALOT BETTER.
--- NOTE | 2022-10-29 07:51 | NUR ---
PT AWAKE WATCHING TV AT TIME OF SHIFT REPORT. STATES HE WANTS TO TAKE A SHOWER TODAY. AGREES HE IS COMFORTABLE AT THE MOMENT. NEEDED ITEMS IN REACH.
--- NOTE | 2022-10-29 10:09 | NUR ---
PLACED NEW IV IN RIGHT WRIST PER RN REQUEST. REMOVED LEAKING ONE. PT TOLERATED WELL THOUGHT DOESN'T LIKE NEEDLES.
--- NOTE | 2022-10-29 10:51 | NUR ---
DR COLEY IN TO SEE PT GIVES VERBAL INSTRUCTION R/T DRESSING CHANGE. PT RESTING IN BED FINISHING IV ABX THEN PLANS TO SHOWER, DRESSING WILL BE CHANGED AFTER THAT. TORDOL ADMINISTERED PER PT REQUEST,
--- NOTE | 2022-10-29 11:31 | NUR ---
DRESSING REMOVED, TRACH SITE COVERED WITH OCCLUSIVE DRESSING PT TO THE SHOWER. PERSONAL CARE ITEMS PROVIDED. BED LINENS CHANGED.
--- NOTE | 2022-10-29 14:22 | NUR ---
PT RESTING IN BED AGREES HIS PAIN IS WELL CONTROLLED AT THIS TIME, MOTHER IS IN THE ROOM.
--- NOTE | 2022-10-29 17:02 | NUR ---
PT HAS BEEN UP AND AMBULATED THIS SHIFT, UP IN ROOM INDEPENDANTLY. SEVERAL VISITORS HAVE BEEN IN. PT STATES HE FEELS PRETTY GOOD, REALLY ENJOYED HIS SHOWER. DRESSING REMAINS CLEAN DRY AND INTACT. CONTINUES TO HAVE DISCOMFORT FROM WOUND AND FACIAL SWELLING REQUESTS PAIN MED EACH TIME IT IS DUE. DENIES OTHER NEEDS. CONTINUES TO TAKE CARE OF TF HIMSELF, AGREES HE HAS FLUSHED TUBE WITH H2O INDICATED. DENIES QUESTIONS OR NEEDS OF.
--- NOTE | 2022-10-29 19:50 | NUR ---
PATIENT RESTING IN BED, APPEARS CALM. VERBALIZES REQUEST FOR PAIN MEDICATION WHEN DUE. DICUSSED POC FOR NIGHT. DRESSING TO NECK APPEARS INTACT, FULL BODY ASSESMENT DONE. NO ACUTE CHANGES. SWELLING TO LEFT FACE APPEARS IMPROVED.
--- NOTE | 2022-10-29 20:40 | NUR ---
pt RESTING IN BED, COMPLAINS OF 7/10 PAIN. PRN PAIN MEDICATIONS ADMINISTERED. PRIMARY RN MARYURI NOW IN ROOM.
--- NOTE | 2022-10-29 21:57 | NUR ---
PAIN MEDICATION APPEARS TO BE EFFECTIVE, PATIENT POSITION LEFT SIDE WITH EYES CLOSED. APPEARS CALM AND RELAXED. APPEARS TO BE NO NEEDS AT THIS TIME.
--- NOTE | 2022-10-29 23:14 | NUR ---
PATIENT CALLED FOR PAIN MEDICATION, STATES " MY LEFT CHEEK IS REALLY BOTHERING ME AND I THINK THINGS ARE REALLY COMING ALIVE". ADMINISTERED 1MG IV DILAUDID PER MAR. IV ANTIBIOTICS INFUSING. NO OTHER NEEDS AT THIS TIME.
--- NOTE | 2022-10-30 01:15 | NUR ---
PATIENT CALLED FOR PAIN MEDICATION, ADMINISTERED LORATAB ELIXIR PER FEEDING TUBE WITH FLUSH TO FOLLOW, AND IV DILAUDID PER JAN. IV VANCO INFUSING. DRESSING TO NECK INTACT. LUNG SOUNDS COURSE THROUGHOUT ALL LOBES BILATERALLY. SWELLING TO FACE GENERAL, SWELLING AROUND EYE DECREASED SIGNIFICANTLY. PROVIDED ICE CHIPS. NO OTHER NEEDS AT THIS TIME.
--- NOTE | 2022-10-30 06:00 | NUR ---
ADMINISTERED MEDICATIONS PER MAR FOR PAIN 7/10 ON PAIN SCALE. IV ANTIBIOTICS INFUSING. NS@ 30 ML/HR. THEN PROVIDED PATIENT WITH DRESSING CHANGE, PER DR. COLEY'S RECCOMENDATION COVERED TRACH STOMA WITH WATER PROOF BANDAGE, THEN REMOVED OLD DRESSING NOTED SATURATION OF YELLOW/GREEN EXUDATE. WOUND BASE APPEARS TO BE 100% ADHERED WET NECROTIC SLOUGH, WOUND EDGES APPEAR TO ERYTHEMIC IN PLACES AND OTHER AREAS ARE INDURATED WITH EDGES APPEARING TO START TO CURL. ATTEMPTED TO REMOVE SLUGH FROM WOUND MARGIN WITH CLEAN SUTURE REMOVAL KIT. SLOUGH FIRMLY ADHERED TO WOUND MARGINS AND BASE. CLEANSED WITH SOAP AND WATER, PATTED DRY. THEN APPLIED CAVILON SKIN PREP TO CONNIE WOUND AND APPLIED MUPIRICON CREAM. APPLIED MOIST GAUZE TO WOUND BED FILLING WOUND BED SPACE, LIGHTLY PACKED. DRY GAUZE APPLIED OVER TOP WITH MEDIPORE TAPE TO SECURE. PATIENT TOLERATED WELL, DID NOT NEED ANY BREAKS, AND VERBALIZED DRESSING FELT SECURE AND COMFORTABLE. THEN REMOVED WATER PROOF BANDAGE FROM TRACH STOMA SITE AND APPLIED 2X2 GAUZE WITH MEDIPORE TAPE. PATIENT THEN UP AMBULATING IN HALLS, DID 3 LAPS. APPEARS STEADY ON FEET. PATIENT VERBALIZED WOULD CALL WITH ANY NEEDS.
--- NOTE | 2022-10-30 07:35 | NUR ---
PT AWAKE AND WALKING THE HALLS AT TIME OF SHIFT REPORT. STATES HE FEELS GOOD TODAY. PAIN MEDS GIVEN PER REQUEST PT DENIES OTHER NEEDS OF.
--- NOTE | 2022-10-30 09:47 | NUR ---
PT CONTINUES UP IN THE ROOM INDEPENDANTLY DOING OWN SELF CARES AND TF. REQUESTS PAIN MEDS AT EACH AVAILABLILTY APPEARS COMFORTABLE. PT DENIES NEED OF ANYTHING AT THIS TIME
--- NOTE | 2022-10-30 11:42 | NUR ---
PT EXPRESSES CONCERN HE MAY NEED TO DC TO A FACILITY FOR CARE FOR WOUND AND FURTHER ABX THERAPY. DISCUSSED OPTIONS WITH THIS PT AND THEN WITH DC CORPORATE COMMUNICATIONS MANAGER. PT EXPRESSES WILLINGNESS TO ADMINISTER ABX HIMSELF AND WILL ATTEMPT TO PARTICIPATE IN DRESSING CHANGE TO WOUND FOR POSSIBILTY OF SELF HOME CARE. DC CORPORATE COMMUNICATIONS MANAGER AND MD WILL CONTINUE TO INVESTIGATE BEST PATH FOR THIS PT GOING FORWARD. PT RESTING NOW WATCHING TV DENIES ANY NEEDS AT THIS TIME.
--- NOTE | 2022-10-30 14:12 | NUR ---
PATIENT WITH 8/10 PAIN. PATIENT GIVEN LORTAB PER NG TUBE, ONE MG IV DILAUDID.
--- NOTE | 2022-10-30 15:17 | NUR ---
DRESSING CHANGED PER ORDERS, PT OBSERVES LOOKING AT WOUND FOR THE FIRST TIME. WELL TOLERATED. ALL QUESTIONS ANSWERED. RESTING IN BED AT THIS TIME DENIES NEEDS OF
--- NOTE | 2022-10-30 20:16 | NUR ---
BEDSIDE REPORT WITH DAYSHIFT NURSE, PATIENT SITTING UP IN BED WATCHING TELEVISION. VERABALIZED PAIN 8/10 ON PAIN SCALE, REQUESTING MEDICATIONS. MADE PLAN OF CARE WITH PATIENT, WHO VERBALIZED CONTENT. NS @ 30 ML/ HOUR. PATIENT PROVIDING SELF CARE WITH FEEDING TUBE, FLUSHES WITH EASE, PATENT.
--- NOTE | 2022-10-30 20:25 | NUR ---
FULL BODY ASSESSMENT DONE, ADMINISTERED SCHEDULED AND PRN MEDICAITON PER JAN. DRESSING TO LEFT NECK C/D/I. PATIENT APPEARS TO HAVE A BETTER UNDERSTANDING OF HIS NEEDS FOR CARE WITH DISCHARGE. PATIENT VERBALIZED DOES NOT WANT TO GO TO A PENITENTIARY FACILITY, BUT WOULD LIKE TO GIVE HOME HEALTH ANOTHER TRY. PATIENT STATED " I SAW MY WOUND IN A MIRROR TODAY FOR THE FIRST TIME, AND IT REALLY FREKED ME OUT". PATIENT APPEARS MORE WILLING TO RETURN FOR FOLLOW UP TO HIS SURGEON AT [facility]. TORADOL HAD BEEN DISCONTINUED ON THE JAN. DISCUSSION WITH DR. CAREY IF PATIENT COULD HAVE MOTRIN TO CRUSH AND PUT IN THE FEEDING TAB. DR. CAREY PLANS TO REVIEW PATIENT CHART, UPDATED PATIENT ON POC. MADE PLAN FOR PAIN MANAGEMENT FOR REST OF SHIFT. NO OTHER NEEDS AT THIS TIME.
--- NOTE | 2022-10-31 00:37 | NUR ---
ADMINISTERED IV PAIN MEDICATION PER MAR, PATIENT STATES " I FEEL LIKE MY MOUTH HAS COME ALIVE, MY TEETH HURT BAD" RATES PAIN 9/10 ON PAIN SCALE. PATIENT ALSO POINTED TO PROXIMAL POINT CLOSE TO THE SURGICAL INCISION OF THE LLE BONE GRAFT SITE. REPORTS PAIN SHARP. THERE ARE NO S/S OF INFECTION, SKIN WNL FOR PATIENT. OFFERED PILLOW FOR ELEVATION, PATIENT DENIED NEED.
--- NOTE | 2022-10-31 01:45 | NUR ---
PATIENT APPEARS TO BE RESTING WITH EYES CLOSED. HOURLY ROUNDING.
--- NOTE | 2022-10-31 03:00 | NUR ---
PATIENT SLEEPING SOUNDLY, APPEARS TO BE SNORING. HOURLY ROUNDING.
--- NOTE | 2022-10-31 04:57 | NUR ---
IV ANTIBIOTICS INFUSING PER MAR. VANCO INFUSING RIGHT WRIST, PATIENT IMMEDIATELY COMPLAINED OF PAIN AFTER STARTING INFUSIION. STOPPED INFUSION, ASSESSMENT OF IV SITE NOTED LEAKING. DC'D IV, STARTED 20 SAJAN TO RIGHT FA, INFUSING WELL. ADMINISTERED IV DIALUDID PER MAR, PATIENT REPORTED PAIN 9/10 ON PAIN SCALE AFTER WAKING UP, VERBALIZES THE PAIN IN HIS FACE. PROVIDED ICE CHIPS. FULL BODY ASSESSMENT DONE. NO ACUTE CHANGES. CHANGED DRESSING TO NECK PER ORDERS USING KERLEX GAUZE TO SECURE WET TO DRY DRESSING. CONINE WOUND SKIN APPEARS TO BE BREAKING DOWN FROM ADHESIVE TAPE, PATIENT HAS HAD RADIATION TO THAT AREA THAT COMPROMISES SKIN INTEGRITY. SWELLING TO FACE, LEFT CHEEK SIGNIFICANTLY DECREASED.
--- NOTE | 2022-10-31 05:40 | NUR ---
PATIENT UP AMBULATING IN HALLS. PROVIDED TOWELS FOR SHOWER LATER THIS MORNING. ADMINISTERED PAIN MEDICATION PER JAN FOR PAIN 07/15 PATIENT STATES " MY MOUTH IS JUST ACHING, TINGLY" PATIENT NOW SELF ADMINISTERING TUBE FEEDINGS. VS WNL. NO OTHER NEEDS AT THIS TIME.
--- NOTE | 2022-10-31 06:47 | NUR ---
CALL LIGHT ANSWERED. IV ANTIBIOTIC COMPLETE. PRN PAIN MEDICATION ADMINISTERED FOR 9/10 PAIN IN MOUTH "IT'S COMING ALIVE." pt CONCERNED WITH PAIN MEDICATIONS AT DISCHARGE. CALL LIGHT IN REACH. NO ADDITIONAL REQUESTS.
--- NOTE | 2022-10-31 08:46 | NUR ---
ADMIN DILAUDID 1MG IV FOR REPORTS OF 6/10 LEFT NECK PAIN.
--- NOTE | 2022-10-31 10:15 | NUR ---
PATIENT GIVEN 30MG PO LORTAB ELIXER FOR 8/10 LEFT FACIAL PAIN. IV'S X2 WRAPPED AND PATIENT IS GETTING IN THE SHOWER.
[2022-10-31] MEDS ORDERED: HYDROCODON-ACE1 EA11 PO (10:53)
[2022-10-31] MEDS ORDERED: OXYCODONE HCL5 MG PO (10:55)
[2022-10-31] MEDS ORDERED: MUPIROCIN22 GM TOP (10:56)
--- NOTE | 2022-10-31 11:00 | NUR ---
DILAUDID 1MG IV ADMIN FOR REPORTS OF 7/10 LEFT NECK PAIN.
== END 2022-10-31 11:30 | disposition home or self-care (01) | DRG 195 ==
LOC: ED 14:09 → MS 14:11
PROVIDERS: ADMIT Family Medicine; ATTEND Internal Medicine
DX: J18.9 Pneumonia, unspecified organism (principal); Z93.0 Tracheostomy status; Z20.822 Contact with and (suspected) exposure to COVID-19; I10 Essential (primary) hypertension; S11.90XA Unspecified open wound of unspecified part of neck, initial encounter; Z87.891 Personal history of nicotine dependence; Z79.899 Other long term (current) drug therapy; X58.XXXA Exposure to other specified factors, initial encounter
CPT/HCPCS: 31720; 36415; 71045; 80048; 80053; 80202; 81001; 83605; 83735; 84100; 84134; 85007; 85025; 85610; 85730; 87088; 87502; 93005; 93010; 94760; A9270; C9803; J0692; J1170; J1200; J1885; J2405; J2543; J3370; J7030; J7060; J8540; U0003

== ENCOUNTER 2024-10-14 06:55 | Day surgery (SDC) | payer OTHER ==
[2024-10-09 09:15] VITALS: BP 120/75
[~2024-10-14] VITALS: Ht 175.3 cm; Wt 65.5 kg
[~2024-10-14 06:55] MED LIST changes: +CHLORHEXIDINE473 ML MM; +CYCLOBENZAPRINE5 MG PO; +DULOXETINE HCL60 MG PO; +ESCITALOPRAM OX20 MG PO; +HYDROCODON-ACE1 EA11 PO; +LACTATED RINGER'S 1,000 ML IV SCH; +LEVOTHYROXINE50 MCG PO; +METRONIDAZOLE500 MG PO; +MOXIFLOXACIN H400 MG PO; +MUPIROCIN22 GM TOP; +OXYCODONE HCL5 MG PO; +PROZAC20 MG PO
[2024-10-14] MEDS ORDERED: LIDOCAINE HCL 1% 5 ML SDV INJ ONE (07:00)
[2024-10-14] MEDS ORDERED: IBLOOD GLUCOSE TEST STRIP 1 EA TEST VI PRN ×2 (07:00→08:45)
[2024-10-14 07:03] VITALS: BP 148/90
--- NOTE | 2024-10-14 07:51 | NUR ---
PT VISITED DURING SPIRITUAL CARE ROUNDS. PT SUPPORTED BY LEARN TO SWIM INSTRUCTOR IN ROOM. BOTH INDICATED NO IMMEDIATE NEEDS, NO OVER SIGNS OF ANXIETY. HEAD OF STORE OPERATIONS PROVIDED SUPPORTIVE PRESENCE, HOSPITALITY, PRAYER, FACILITATED INTERACTION WITH THERAPY ANIMAL.
[2024-10-14] MEDS ORDERED: fentaNYL citrate 100 MCG/2 ML VIAL ONE (08:23)
[2024-10-14] MEDS ORDERED: LIDOCAINE HCL 4% 5 ML AMP ONE (08:23)
[2024-10-14] MEDS ORDERED: ondansetron HCL 4 MG/2 ML VIAL ONE (08:24)
[2024-10-14] MEDS ORDERED: LIDOCAINE HCL 2% 5 ML SDV ONE (08:24)
[2024-10-14] MEDS ORDERED: propofoL 200 MG/20 ML VIAL ONE (08:24)
[2024-10-14] MEDS ORDERED: SUGAMMADEX SODIUM 200 MG/2 ML ML ONE (08:24)
[2024-10-14] MEDS ORDERED: ROCURONIUM BROMIDE 50 MG/5 ML SYR ONE (08:24)
[2024-10-14] MEDS ORDERED: dexmedeTOMIDine HCl 200 MCG/2 ML VIAL ONE (08:24)
[2024-10-14] MEDS ORDERED: DEXAMETHASONE SOD PHOS 4 MG/ML VIAL ONE (08:24)
[2024-10-14] MEDS ORDERED: LIDOCAINE 1% W/ EPI 1:100,000 20 ML MDV ONE (08:27)
[2024-10-14] MEDS ORDERED: ACETAMINOPHEN 1,000 MG/100 ML VIAL ONE (08:35)
[2024-10-14] MEDS ORDERED: NALOXONE HCL 0.4 MG SYR IV PRN (08:45)
[2024-10-14] MEDS ORDERED: ondansetron HCL 4 MG/2 ML VIAL IV PRN (08:45)
[2024-10-14] MEDS ORDERED: fentaNYL citrate 50 MCG/ML SDV IV PRN (08:45)
[2024-10-14 09:35] VITALS: BP 121/84
--- NOTE | 2024-10-14 09:37 | NUR ---
PT ARRIVES TO DS FROM PACU VIA STRETCHER. PT IS A&O AND REPORTS NO PAIN AT THIS TIME. PT IS ON RA W/O2 >90% VIA PULSE OX, RESPIRATIONS ARE EVEN AND UNLABORED. ICE WATER PROVIDED, PT TOLERATING WITHOUT DIFFICULTY SWALLOWING. REPORT RECEIVED FROM NATACHA GARCIA W/PT MOTHER AT BEDSIDE. APPLESAUCE PROVIDED. CALL LIGHT WITHIN REACH, PT STATES NO FURTHER NEEDS OR QUESTIONS AT THIS TIME.
--- NOTE | 2024-10-14 09:49 | NUR ---
10/14/24 0949 Gwen Walsh 0918 PT ARRIVED IN PACU WIDE AWAKE AND TALKING TO STAFF. 0920 NO C/O'S. 0937 TO DS. REPORT GIVEN TO RN. FAMILY AT BEDSIDE.
--- NOTE | 2024-10-14 10:05 | NUR ---
IN PT ROOM FOR PAIN ASSESSMENT. PT STATES PAIN IS AT 4/10, BUT STATES TOLERABLE AT THIS TIME. PT STATES NEED TO URINE VOID. PT SITS AT BEDSIDE AND REPORTS NO NEW DIZZINESS/NAUSEA. PT HAS CHRONIC VERTIGO AT BASELINE. PT TO RESTROOM W/THIS RN STANDBY ASSIST. PT URINE VOIDS 150 ML OF CLEAR/YELLOW URINE. PT BACK TO ROOM AND GETTING DRESSED AT THIS TIME, CALL LIGHT WITHIN REACH.
[2024-10-14 10:30] VITALS: BP 123/86
--- NOTE | 2024-10-14 10:30 | NUR ---
DC EDUCATION PROVIDED AT THIS TIME, PT STATES VERBAL UNDERSTANDING AND STATES NO FURTHER QUESTIONS OR NEEDS AT THIS TIME. PT OFF OF UNIT VIA WC TO PASSENGER SIDE OF VEHICLE. ALL BELONGINGS IN PT POSSESSION. PT STATES NO FURTHER NEEDS.
--- NOTE | 2024-10-14 11:26 | OR ---
[facility] [address] [place], [place] [address] Signed DATE OF OPERATION: 10/14/2024 SURGEON: Xavi Jameson MD PREOPERATIVE DIAGNOSIS: Left oral cyst. POSTOPERATIVE DIAGNOSIS: Left oral cyst. PROCEDURE: Incision and drainage of left oral cyst. ANESTHESIA: General, orotracheal. 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 He has had cystic process in the left retromolar trigone aspirated in the office and this has recurred several times and he is being taken to the operating room for a more definitive procedure. OPERATIVE PROCEDURE AND FINDINGS: After informed consent, the patient was taken to the operating room, placed in supine position, where general orotracheal anesthesia was induced. The patient and procedure were verified. The patient was repositioned. McIvor mouthgag placed into suspension. There was some bulging in the retromolar trigone area, fluctuant area, which was incised with scissors. Minimal amount of fluid was obtained. The cyst had gotten much smaller. Probing with the scissors several times revealed no further fluid. Minimal bleeding stopped afterwards. Pharynx was suctioned, clear of blood and secretions. The mouth gag was removed. The patient was awakened, extubated, and transported to the recovery room in good condition. No complications. BLOOD LOSS: Minimal. SPECIMEN: No specimen. Electronically Signed By: XAVI JAMESON MD 10/14/24 1126 PATIENT NAME: JORDAN LOVE OPERATIVE REPORT DATE OF : 71 REPORT #: [id number] PHYSICIAN: XAVI JAMESON MD PCP: EVA SIMMS MD REPORT IS CONFIDENTIAL AND NOT TO BE RELEASED WITHOUT AUTHORIZATION [address] [address] Signed DRAINS: No drain. Xavi Jameson MD /MODL /[id number] Copies: ~ Electronically Signed By: XAVI JAMESON MD 10/14/24 1126 PATIENT NAME: JORDAN LOVE OPERATIVE REPORT DATE OF : 71 REPORT #: [id number] PHYSICIAN: XAVI JAMESON MD PCP: EVA SIMMS MD REPORT IS CONFIDENTIAL AND NOT TO BE RELEASED WITHOUT AUTHORIZATION
== END 2024-10-14 10:39 | disposition home or self-care (01) ==
LOC: DS 06:55
PROVIDERS: ATTEND Otolaryngology
PROC: 0W930ZZ Drainage of Oral Cavity and Throat, Open Approach (ICD-10-PCS; principal; 2024-10-14 08:30)
DX: K09.9 Cyst of oral region, unspecified (principal); F17.200 Nicotine dependence, unspecified, uncomplicated
CPT/HCPCS: 00300; J0131; J1100; J2003; J2405; J2704; J3010; J3490; J7121

== ENCOUNTER 2024-12-25 09:25 | Day surgery (SDC) | payer MEDICARE, OTHER ==
[2024-12-22 13:31] VITALS: BP 111/71
[~2024-12-25] VITALS: Ht 175.3 cm; Wt 67.0 kg
[~2024-12-25 09:25] MED LIST changes: +CYCLOBENZAPRINE10 MG PO; +HYDROCODON-ACE1 EAC8 PO; +IBLOOD GLUCOSE TEST STRIP 1 EA TEST VI PRN; +LIDOCAINE HCL 1% 5 ML SDV INJ ONE; +MAGIC MOUTHWASH PO; +NICOTINE1 EAC2 TD; +PROZAC40 MG PO; +SODIUM FLUORID
[2024-12-25 09:36] VITALS: BP 115/83
[2024-12-25] MEDS ORDERED: LIDOCAINE HCL 2% 5 ML SDV ONE (10:28)
[2024-12-25] MEDS ORDERED: propofoL 200 MG/20 ML VIAL ONE (10:28)
--- NOTE | 2024-12-25 11:19 | NUR ---
12/25/24 Nicole Leroy 1111-PATIENT ARRIVED TO PACU ON 6L MASK RR EVEN. PATIENT NONAROUSABLE SR HR 60'S. IVF INFUSING. ABDOMEN SOFT. PATIENT LAYING LEFT LATERAL.
[2024-12-25 11:50] VITALS: BP 132/86
--- NOTE | 2024-12-29 17:40 | PATH ---
[facility] [address] [facility] [place], [place] [address] Signed SPECIMEN(S): A ASCENDING POLYP SPECIMEN(S): B DESCENDING POLYP SPECIMEN SOURCE: A. ASCENDING POLYP B. DESCENDING POLYP CLINICAL HISTORY: Hx: Screening. DX: Hemorrhoids and polyps. FINAL PATHOLOGIC DIAGNOSIS: A. Ascending polyp: - Tubular adenoma (two fragments). B. Descending polyp: - Tubular adenoma. JVR:zackery MICROSCOPIC EXAMINATION: Histologic sections of all submitted blocks are examined by light microscopy. These findings, together with the gross examination, support the pathologic diagnosis. GROSS DESCRIPTION: A. The specimen, labeled and designated "Jerald, Sarah, 1. " and designated on the requisition "Ascending/right polypectomy," is received in formalin and consists of three jin soft tissue fragments that measure 0.2-0.4 cm in greatest dimension. The specimen is entirely submitted in (A1). B. The specimen, labeled and designated "Jerald, Sarah, 2." and designated on the requisition "descending/left polypectomy," is received in formalin and consists of one jin soft tissue fragment that is 0.7 cm in greatest dimension. The specimen is inked, bisected, and entirely submitted in (B1). FB (under the direct supervision of a pathologist) The Gross Description was prepared using a voice recognition system. The report was reviewed for accuracy; however, sound-alike word errors, addition and/or deletions may occur. If there is any question about this report, please contact Client Services. PERFORMING LABORATORY: Technical component was performed by [employer] Yesica Marti, PATIENT NAME: ISABEL LOVE PATHOLOGY DATE OF : 71 REPORT #: [id number] PHYSICIAN: XI PATHOLOGY PCP: EVA SIMMS MD REPORT IS CONFIDENTIAL AND NOT TO BE RELEASED WITHOUT AUTHORIZATION [facility] [address] [facility] [place], [place] [address] [place] [address] (CLIA# [id number]). Professional interpretation was performed by [facility] [address] [address] (CLIA#: [id number]). Diagnostician: Efra Simpson MD Pathologist Electronically Signed 12/29/2024 Copies: ~ PATIENT NAME: ISABEL LVOE PATHOLOGY DATE OF : 71 REPORT #: [id number] PHYSICIAN: XI PATHOLOGY PCP: EVA SIMMS MD REPORT IS CONFIDENTIAL AND NOT TO BE RELEASED WITHOUT AUTHORIZATION
--- NOTE | 2024-12-30 12:42 | OR ---
[facility] [address] [place], [place] [address] Signed DATE OF OPERATION: 12/25/2024 SURGEON: Amy Henry MD PREOPERATIVE DIAGNOSES: 1. Colon screening. 2. History of chemoradiation therapy for advanced oropharyngeal cancer. POSTOPERATIVE DIAGNOSES: 1. Polyps x2. 2. Internal hemorrhoids. PROCEDURES: Total colonoscopy to cecum with cold snare polypectomy x1 and cold morcellation polypectomy x1. ANESTHESIA: Intravenous sedation, propofol infusion; Jefferson Otto CRNA INDICATIONS FOR THE PROCEDURE: This 49-year-old white man is a patient of Dr. Eva Simms. 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 He ultimately underwent bone grafting in 2021. He is here, doing well regarding his oropharyngeal cancer and recovery from it, but has never had screening colonoscopy and has been recommended to do so by his primary provider. Colonoscopy is offered at this time. The risk of bleeding, infection, perforation, and so forth were reviewed in detail. He understands and wished to proceed. FINDINGS: The prep was good. Complete colonoscopy was undertaken of the cecum. Full intubation of the cecum was noted. The two small polyps, both of them adenomatous in appearance, one in the right colon and the other in the left, both excised completely. Internal hemorrhoids were noted as well. DESCRIPTION OF PROCEDURE: The patient was brought to the endoscopy suite and placed in lateral decubitus position given intravenous sedation to the point of slurred speech and nystagmus with full cardiopulmonary monitoring as provided by the cytopathologist using propofol infusional Electronically Signed By: AMY HENRY MD 12/30/24 1242 PATIENT NAME: ISABEL LOVE OPERATIVE REPORT DATE OF : 71 REPORT #: [id number] PHYSICIAN: AMY HENRY MD PCP: EVA SIMMS MD REPORT IS CONFIDENTIAL AND NOT TO BE RELEASED WITHOUT AUTHORIZATION [facility] [address] [place], [place] [address] Signed sedation. Digital rectal examination was normal. An Olympus video colonoscope was passed in the rectum and manipulated in the sigmoid. For various reasons, the scope appeared to be suboptimal and was removed and another scope obtained. The scope was then passed and without problem manipulated beyond the sigmoid opening to the cecum. Ileocecal valve and appendiceal orifice were normal. The scope was withdrawn. In the mid ascending colon, there was a small adenomatous polyp, this was excised with cold morcellation technique. The scope was further withdrawn. In the left colon was another similar such adenomatous appearing polyp, this was excised with cold snare technique. Further withdrawal showed no other abnormality until retroflexed view of the rectum confirmed internal hemorrhoids. The scope was removed. The patient was taken to the recovery room in good condition. CONCLUDING DIAGNOSIS: Polyps x2 and internal hemorrhoids. PLAN: Recommend repeat colonoscopy in 10 years, sooner if symptoms should develop. We would recommend high-fiber diet as well. He will return to the ongoing care of Dr. Eva Simms. MD ROSEY Aquino/ELIZABETH /[id number] cc: Eva Simms MD Copies: EVA SIMMS DMD ~ Electronically Signed By: AMY HENRY MD 12/30/24 1242 PATIENT NAME: ISABEL LOVE OPERATIVE REPORT DATE OF : 71 REPORT #: [id number] PHYSICIAN: AMY HENRY MD PCP: EVA SIMMS MD REPORT IS CONFIDENTIAL AND NOT TO BE RELEASED WITHOUT AUTHORIZATION
== END 2024-12-25 11:55 | disposition home or self-care (01) ==
LOC: OPS 09:25 → DS 09:25 → OPS 11:00 → DS 11:15 → OPS 11:45 → DS 11:45 → OPS 11:55
PROVIDERS: ATTEND Surgery
PROC: 0DBF8ZZ Excision of Right Large Intestine, Via Natural or Artificial Opening Endoscopic (ICD-10-PCS; 2024-12-25)
PROC: 0DBG8ZZ Excision of Left Large Intestine, Via Natural or Artificial Opening Endoscopic (ICD-10-PCS; 2024-12-25)
PROC: 0DBK8ZZ Excision of Ascending Colon, Via Natural or Artificial Opening Endoscopic (ICD-10-PCS; principal; 2024-12-25 11:00)
DX: Z12.11 Encounter for screening for malignant neoplasm of colon (principal); D12.2 Benign neoplasm of ascending colon; D12.4 Benign neoplasm of descending colon; K64.8 Other hemorrhoids; K31.6 Fistula of stomach and duodenum; M27.2 Inflammatory conditions of jaws; C09.9 Malignant neoplasm of tonsil, unspecified; C14.0 Malignant neoplasm of pharynx, unspecified; Z87.891 Personal history of nicotine dependence; Z79.899 Other long term (current) drug therapy
CPT/HCPCS: 00812; 88305; J2003; J2704; J7121